=== PATIENT | female | born 1980 | race Two or more races ===

== ENCOUNTER 2018-12-01 10:43 | Emergency (ER) | payer OTHER ==
[2018-12-01 11:08] VITALS: BP 108/73
[2018-12-01] MEDS ORDERED: NS 0.9% 1000 ML** 1,000 ML IV SCH (12:30)
--- NOTE | 2018-12-01 12:38 | UC ---
Complaint Female HPI - HPI Summary HPI Summary: PATIENT STARTED WITH HEAVY VAGINAL BLEEDING 5 DAYS AGO. IS SOAKING THROUGH HER FEMININE HYGIENE PRODUCT EVERY HOUR AND IT IS NOT SLOWING DOWN. IS COMPLAINING OF A SEVERE HEADACHE AND FEELING FATIGUED. IS REPORTING OCCASIONAL CHEST PAIN AND FEELING WEAK IN THE KNEES. HAS SIGNIFICANT LEFT LOWER QUADRANT AND SUPRAPUBIC ABDOMINAL PAIN AND CRAMPING. IS SEXUALLY ACTIVE WITH HER ONLY, MOST RECENTLY ABOUT 1 WEEK AGO. STATES NO CHANCE OF . - History Of Current Complaint Chief Complaint: [facility] Stated Complaint: CHESTPAIN/PERSONAL/LOWWER STOMACHPAIN Time Seen by Provider: 12/01/18 12:03 Hx Obtained From: Patient Hx Last Menstrual Period: 11/26/18 Onset/Duration: Gradual Onset, Lasting Days, Still Present Timing: Constant Severity Initially: Moderate Severity Currently: Moderate Pain Intensity: 7 Pain Scale Used: 0-10 Numeric Character: Sharp, Cramping Aggravating Factor(s): Nothing Alleviating Factor(s): Nothing Associated Signs And Symptoms: Positive: Vaginal Bleeding/Discharge. Negative: Fever, Nausea - Allergies/Home Medications Allergies/Adverse Reactions: Allergies Allergy/AdvReac Type Severity Reaction Status Date / Time MS Penicillins [PCN] Allergy Rash And Verified 04/29/16 09:26 Itching Penicillins Allergy Rash Verified 12/01/18 11:08 PMH/Surg Hx/FS Hx/Imm Hx Previously Healthy: Yes - Surgical History Surgical History: None - Family History Known Family History: Positive: None - Social History Alcohol Use: None Substance Use Type: None Smoking Status (MU): Never Smoked Tobacco Review of Systems All Other Systems Reviewed And Are Negative: Yes Constitutional: Positive: Fatigue ENT: Positive: Negative Respiratory: Positive: Negative Cardiovascular: Positive: Negative Gastrointestinal: Positive: Abdominal Pain. Negative: Nausea Genitourinary: Positive: Other - HEAVY VAGINAL BLEEDING Neurological: Positive: Headache Physical Exam Triage Information Reviewed: Yes Appearance: Well-Nourished, Pain Distress - MOD/SEVERE. PT CURLED UP IN POSITION Vital Signs: Initial Vital Signs Temp 99.3 F 12/01/18 11:03 Pulse 78 12/01/18 11:03 Resp 18 12/01/18 11:03 BP 108/73 12/01/18 11:03 Pulse Ox 100 12/01/18 11:03 Vital Signs Reviewed: Yes Eyes: Positive: Conjunctiva Clear ENT: Positive: Hearing grossly normal Neck: Positive: Supple Respiratory Exam: Normal Cardiovascular Exam: Normal Abdomen Description: Positive: Soft, CVA Tenderness (R) - EQUIVOCAL, CVA Tenderness (L) - EQUIVOCAL, Other: - SIGNIFICANT TENDERNESS LLQ AND SUPRAPUBIC AREAS.. Negative: Distended, Guarding Bowel Sounds: Positive: Present Musculoskeletal: Positive: No Edema Neurological: Positive: Alert Psychological: Positive: Age Appropriate Behavior Skin: Negative: Rashes Complaint Female Dx - Course Course Of Treatment: PATIENT REPORTS HEAVY VAGINAL BLEEDING THAT SOAKS THROUGH HER FEMININE HYGIENE PRODUCT EVERY HOUR FOR THE PAST 5 DAYS. SHE HAS A SIGNIFICANT HEADACHE, IS FEELING FATIGUED AND COMPLAINING OF SEVERE LEFT-SIDED/SUPRAPUBIC ABDOMINAL PAIN/ CRAMPING. STATES NO CHANCE OF HOWEVER I DISCUSSED WITH HER THAT GIVEN HER SYMPTOMS A URINE TEST IS INDICATED. SHE REQUIRES A HIGHER LEVEL OF SERVICE THAN WHAT IS AVAILABLE IN THE URGENT CARE. RECOMMEND TRANSFER TO [facility] [place] [facility]UL[facility]. SHE PREFERS TO DO EVERYTHING IN ONE LOCATION SO WILL DEFER TESTING TO ARRIVAL IN THE EMERGENCY ROOM. - Differential Dx/Diagnosis Provider Diagnosis: Menorrhagia, Abdominal pain - Physician Notifications Discussed Patient Care With: LISBET CARVAJAL - TO [facility] BY [facility] Instructed by Provider To: MD Will See In ED Discharge - Sign-Out/Discharge Documenting (check all that apply): Patient Departure All imaging exams completed and their final reports reviewed: No Studies - Discharge Plan Condition: Stable Disposition: TRANS HIGHER LVL OF CARE FAC Referrals: No Primary Care Phys,NOPCP [Primary Care Provider] - - Billing Disposition and Condition Condition: STABLE Disposition: Trans Higher Lvl of Care Fac
== END 2018-12-01 12:52 | disposition short-term general hospital (02) ==
LOC: UCEAST 10:43
DX: N92.0 Excessive and frequent menstruation with regular cycle (principal); R10.32 Left lower quadrant pain
CPT/HCPCS: 96360; 99213; G0463

== ENCOUNTER 2018-12-01 13:10 | Emergency (ER) | payer OTHER ==
[2018-12-01] MEDS ORDERED: NS 0.9% 1000 ML** 1,000 ML IV ONE (13:47)
[2018-12-01] MEDS ORDERED: Ondansetron INJ* 2 MG/ML VIAL IV ONE (13:48)
[2018-12-01] MEDS ORDERED: NS 0.9% 1000 ML** 2,000 ML IV ONE (13:51)
[2018-12-01] MEDS ORDERED: diPHENhydraMINE IV* 50 MG/ML 1 ml VIAL (BENADRYL) IV ONE (13:51)
[2018-12-01] MEDS ORDERED: Ketorolac INJ* 30 MG/ML 1 ML VIAL IV PUSH ONE (13:51)
--- NOTE | 2018-12-01 13:56 | ED ---
Headache - HPI Summary HPI Summary: Pt is a 38 y/o F presenting to the ED with a chief complaint of a headache in the frontal area of her head. She states she went to [facility] for vaginal bleeding and while she was there, she developed a headache with nausea, vomiting, and photophobia, so they sent her here. She denies blurry vision, diplopia, or weakness in her extremities. She reports pain in the LLQ described as cramping. - History Of Current Complaint Chief Complaint: EDVaginalBleeding Stated Complaint: HEAVY VAGINAL BLEEDING PER EMS Time Seen by Provider: 12/01/18 13:47 Hx Obtained From: Patient Hx Last Menstrual Period: 11/26/18 Onset/Duration: Sudden Onset, Started hours ago, Still Present Initially Headache Was: Moderate, Severe Currently Pain Is: Severe Timing: Constant, Hours Location of Headache: Frontal Aggravating Factor: Bright Lights Allevating Factors: Nothing Associated Signs And Symptoms: Nausea, Vomiting - Allergies/Home Medications Allergies/Adverse Reactions: Allergies Allergy/AdvReac Type Severity Reaction Status Date / Time Penicillins Allergy Rash Verified 12/01/18 13:21 PMH/Surg Hx/FS Hx/Imm Hx Previously Healthy: Yes Endocrine/Hematology History: Denies: Hx Diabetes Cardiovascular History: Denies: Hx Hypertension History: Denies: Hx Renal Disease - Cancer History Hx Chemotherapy: No Hx Radiation Therapy: No Infectious Disease History: No Infectious Disease History: Denies: Traveled Outside the [place] in Last 30 Days - Family History Known Family History: Negative: Hypertension - Social History Alcohol Use: None Hx Substance Use: No Substance Use Type: Reports: None Hx Tobacco Use: No Smoking Status (MU): Never Smoked Tobacco Review of Systems Positive: Photophobia. Negative: Blurred Vision, Diplopia Positive: Abdominal Pain, Vomiting, Nausea Positive: other - vaginal bleeding Positive: Headache. Negative: Weakness All Other Systems Reviewed And Are Negative: Yes Physical Exam - Summary Physical Exam Summary: Appearance: Well-appearing, Well-nourished, lying in bed comfortably Skin: Warm, dry, no obvious rash Eyes: sclera anicteric, no conjunctival pallor ENT: mucous membranes moist, pharynx appears normal Neck: Supple, nontender Respiratory: Clear to auscultation, no signs of respiratory distress Cardiovascular: Normal S1, S2. No murmurs. Normal distal pulses in tibial and radial bilaterally. Abdomen: Soft, LLQ tenderness, normal active bowel sounds present Musculoskeletal: Normal, Strength/ROM Intact Neurological: A&Ox3, awake and alert, mentation is normal, speech is fluent and appropriate Psychiatric: affect is normal, does not appear anxious or depressed Triage Information Reviewed: Yes Vital Signs On Initial Exam: Initial Vitals Temp Pulse Resp BP Pulse Ox 98.8 F 85 16 145/91 100 12/01/18 13:18 12/01/18 13:18 12/01/18 13:18 12/01/18 13:18 12/01/18 13:18 Vital Signs Reviewed: Yes Diagnostics - Vital Signs Vital Signs Temp Pulse Resp BP Pulse Ox 12/01/18 13:27 83 135/93 100 12/01/18 13:18 98.8 F 85 16 145/91 100 - Laboratory Result Diagrams: 12/01/18 13:54 12/01/18 13:54 Lab Statement: Any lab studies that have been ordered have been reviewed, and results considered in the medical decision making process. - Ultrasound Pelvic US Ultrasound Interpretation Completed By: Radiologist Summary of Ultrasound Findings: Myomatous changes of the uterus. Endometrial echo measures 1.5 cm. No adnexal masses are noted. Thickened heterogeneous endometrium which may be due to the phase of the patient's menstrual cycle. ED physician has reviewed this report. Re-Evaluation - Re-Evaluation First Eval Re-Evaluation Time: 16:12 Change: Improved - Patient states headache and nausea have resolved. Her lab studies are unremarkable. It would seem that she suffered from a quite severe migraine at her prior appointment which precipitated the visit to the ED. That situation has been medicated and is now resolved. Headache Course/Dx - Course Course Of Treatment: Pt is a 38 y/o F presenting to the ED with a chief complaint of a headache in the frontal area of her head. While at for vaginal bleeding, she developed a headache with nausea, vomiting, and photophobia, so they sent her here. She denies blurry vision, diplopia, or weakness in her extremities. She reports pain in the LLQ described as cramping. Transvaginal US shows: Myomatous changes of the uterus. Endometrial echo measures 1.5 cm. No adnexal masses are noted. Thickened heterogeneous endometrium which may be due to the phase of the patient's menstrual cycle. Pt will be d/c'ed with dx including dysfunction of uterine bleeding and migraine headache. She is stable and agreeable with this plan. - Diagnoses Provider Diagnoses: Dysfunctional uterine bleeding, Migraine headache Discharge - Sign-Out/Discharge Documenting (check all that apply): Patient Departure Patient Received Moderate/Deep Sedation with Procedure: No - Discharge Plan Condition: Improved Disposition: HOME Patient Education Materials: Dysfunctional Uterine Bleeding (ED), Migraine Headache (ED) Referrals: Марина Leon MD [Medical Doctor] - - Billing Disposition and Condition Condition: IMPROVED Disposition: Home - Attestation Statements Document Initiated by Scribe: Yes Documenting Scribe: Rina Freeman Provider For Whom Deshawnibcourtney is Documenting (Include Credential): Travis Ng MD. Scribe Attestation: Rina Katz scribed for Travis Ng MD. on 12/07/18 at 1321. Scribe Documentation Reviewed: Yes Provider Attestation: The documentation as recorded by the Rina phillips accurately reflects the service I personally performed and the decisions made by Travis sarabia MD. Status of Scribe Document: Viewed
[2018-12-01 14:40] LABS: ALT 8 U/L (7-52); AST 11 U/L (13-39); Albumin 3.7 g/dL (3.2-5.2); Albumin/Globulin Ratio 1.1 (1-3); Alkaline Phosphatase 56 U/L (34-104); Anion Gap 7 mmol/L (2-11); BUN/Creatinine Ratio 16.7 (8-20); Blood Urea Nitrogen 10 mg/dL (6-24); CO2 Carbon Dioxide 24 mmol/L (22-32); Calcium 8.7 mg/dL (8.6-10.3); Chloride 108 mmol/L (101-111); EGFR Non-African American 110.7 (>60); Globulin 3.3 g/dL (2-4); Glucose 87 mg/dL (70-100); Potassium 3.9 mmol/L (3.5-5.0); Sodium 139 mmol/L (135-145)
[2018-12-01 14:45] LABS: HCG Pregnancy < 0.60 mIU/mL
[2018-12-01 15:07] LABS: Urine Appearance Clear; Urine Bilirubin Negative (Negative); Urine Blood Negative (Negative); Urine Color Straw; Urine Glucose Negative (Negative); Urine Ketones Trace (Negative); Urine Nitrite Negative (Negative); Urine Protein Negative (Negative); Urine Specific Gravity 1.009 (1.010-1.030); Urine Urobilinogen Negative (Negative)
[2018-12-01 15:47] LABS: ABS Basophils 0.1 10^3/ul (0-0.2); ABS Eosinophils 0.2 10^3/ul (0-0.6); ABS Lymphocytes 1.6 10^3/ul (1.0-4.8); ABS Monocytes 0.3 10^3/ul (0-0.8); ABS Neutrophils 3.3 10^3/ul (1.5-7.7); Hematocrit 26 % (35-47); Hemoglobin 7.9 g/dL (12.0-16.0); Mean Corpuscular HGB Conc 31 g/dL (31-36); Mean Corpuscular Hemoglobin 18 pg (27-31); Mean Corpuscular Volume 58 fL (80-97); Mean Platelet Volume 7.8 fL (7.4-10.4); Platelet Count 389 10^3/uL (150-450); Red Blood Count 4.39 10^6 /uL (3.70-4.87); Red Cell Distribution Width 17 % (10-15); White Blood Count 5.4 10^3/uL (3.5-10.8)
[2018-12-01 15:48] LABS: Microcytosis 3+
[2018-12-01 16:19] VITALS: BP 97/76
== END 2018-12-01 16:18 | disposition home or self-care (01) ==
LOC: ED 13:10
DX: R51 Headache (principal)
CPT/HCPCS: 36415; 76856; 80053; 81003; 83690; 84702; 85025; 85060; 96361; 96374; 96375; 99283; J1200; J1885; J2405